=== PATIENT | male | born 1955 | race Caucasian/White ===

== ENCOUNTER 2024-02-08 09:20 | Emergency (ER) | payer MEDICARE, OTHER, SELFPAY ==
[2024-02-08 09:21] VITALS: BP 102/75
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
[2024-02-08] MEDS: LIDOCAINE 4% PATCH 1 PATCH TOPICAL (11:46)
[2024-02-08 12:08] LABS: Urine Albumin Negative (Neg - Trace); Urine Bilirubin Negative (Negative); Urine Character Clear (Clear); Urine Color Yellow; Urine Glucose Negative (Negative); Urine Ketone Negative (Negative); Urine Leukocyte Negative (Negative); Urine Nitrite Negative (Negative); Urine Occult Blood Negative (Negative); Urine Specific Gravity 1.015 (<1.030); Urine Urobilinogen Negative (Neg - 1+)
[2024-02-08 12:42] VITALS: BP 124/84
== END 2024-02-08 12:45 | disposition home or self-care (01) ==
LOC: EMR 09:20
PROVIDERS: Student in an Organized Health Care Education/Training Program; EMERGENCY PHYSICIAN Emergency Medicine
DX: S22.32XA Fracture of one rib, left side, initial encounter for closed fracture (principal); R06.02 Shortness of breath; W11.XXXA Fall on and from ladder, initial encounter; Z88.0 Allergy status to penicillin
CPT/HCPCS: 99283; 71101; 81003